=== PATIENT | male | born 1985 | race American Indian/Alaskan Native ===

== ENCOUNTER 2017-04-01 12:55 | Emergency (ER) | payer MEDICAID ==
[2017-04-01 13:07] VITALS: BMI 21.4
[2017-04-01 13:11] VITALS: RESP 18; O2SAT 98
[2017-04-01] MEDS ORDERED: Epinephrine /Lidocaine HCL 1:100,000/2% 30 ml INJ STA (14:13)
[2017-04-01] MEDS ORDERED: Lidocaine 2% w Epi 1:100,000 Inj IJ ONE (14:26)
--- NOTE | 2017-04-01 15:00 | CT ---
PROCEDURE: CT HEAD WITHOUT CONTRAST. HISTORY: syncope @ 0430, Lower lip lac COMPARISON: None available. TECHNIQUE: Axial computed tomography images were obtained through the head/brain without intravenous contrast. Radiation dose: Total exam DLP = 836.44 mGy-cm. This CT exam was performed using one or more of the following dose reduction techniques: Automated exposure control, adjustment of the mA and/or kV according to patient size, and/or use of iterative reconstruction technique. FINDINGS: HEMORRHAGE: No intracranial hemorrhage. BRAIN: No mass effect or edema. The hall-white matter differentiation appears intact. Please note that MRI with diffusion imaging is more sensitive in the detection of acute ischemic event. VENTRICLES: No hydrocephalus. CALVARIUM: Unremarkable. PARANASAL SINUSES: Mucosal thickening of the ethmoid air cells and bilateral sphenoid sinuses. MASTOID AIR CELLS: Unremarkable as visualized. No inflammatory changes. OTHER FINDINGS: None. IMPRESSION: No acute intracranial pathology identified.
--- NOTE | 2017-04-01 15:25 | C.PDOC ---
History Of Present Illness 31 y/o male presents to the ER for evaluation of a lip injury. Patient reports that he fell and hit his face on the floor. Patient reports that he cut his lips. Patient denies any substance abuse or ETOH abuse. Patient reports that he has no other medical complaints. Time Seen by Provider: 04/01/17 14:09 Chief Complaint (Nursing): Syncope History Per: Patient History/Exam Limitations: no limitations Onset/Duration Of Symptoms: Hrs Current Symptoms Are (Timing): Still Present Severity: Moderate Past Medical History Reviewed: Historical Data, Nursing Documentation, Vital Signs Vital Signs: Last Vital Signs Temp 98.0 F 04/01/17 15:50 Pulse 79 04/01/17 15:50 Resp 18 04/01/17 15:50 BP 124/74 04/01/17 15:50 Pulse Ox 98 04/02/17 00:49 - Medical History PMH: No Chronic Diseases Surgical History: No Surg Hx Family History: States: No Known Family Hx - Social History Hx Tobacco Use: Yes Hx Alcohol Use: Yes Hx Substance Use: Yes (past user) - Immunization History Hx Tetanus Toxoid Vaccination: No Hx Influenza Vaccination: No Hx Pneumococcal Vaccination: No Review Of Systems Except As Marked, All Systems Reviewed And Found Negative. Skin: Positive for: Other (cut on lip). Negative for: Bruising Neurological: Negative for: Confusion, Dizziness Physical Exam - Physical Exam Appears: Non-toxic, No Acute Distress, Other (thin black man) Skin: Normal Color, Warm Lips: Laceration (split lower lip - 2 cm) Neck: Supple Chest: Symmetrical Cardiovascular: Rhythm Regular Respiratory: Normal Breath Sounds, No Accessory Muscle Use Extremity: Normal ROM Neurological/Psych: Oriented x3, Normal Speech, Normal Cognition, Normal Motor, Normal Sensation ED Course And Treatment O2 Sat by Pulse Oximetry: 98 (RA) Pulse Ox Interpretation: Normal Laceration - Laceration Repair Inner Mid Lip Wound Length (In cm): 0.5 Description Of Wound: Linear Wound Cleansed With: Sterile Saline Anesthesia: Lidocaine 2%, With Epi Wound Examination: Irrigated With Saline, No FB With Wound Exploration Wound Closure: Suture (x1) Suture Technique And Material Used: Vicryl (3-0) Wound Complexity: Simple Outer Mid Lip Wound Length (In cm): 2 Description Of Wound: Linear Wound Cleansed With: Sterile Saline Anesthesia: Lidocaine 2%, With Epi Wound Examination: Irrigated With Saline, No FB With Wound Exploration Wound Closure: Suture (x6) Suture Technique And Material Used: Vicryl (3-0) Wound Complexity: Simple Medical Decision Making Medical Decision Making: accidental fall without intoxication with split lower lip now s/p suture repair w excellent effect head CT neg. ice pack, nsaids educated. Disposition Doctor Will See Patient In The: Office Counseled Patient/Family Regarding: Studies Performed, Diagnosis - Disposition Referrals: [facility] [Outside] [facility] [Outside] Disposition: HOME/ ROUTINE Disposition Time: 15:25 Condition: GOOD Additional Instructions: your lip laceration was repaired with 6 sutures on the outside and 1 on the inside soft diet. nothing hot/cold Motrin as needed ice packs to the lip as needed for swelling/pain your head CT is negative. Return in 2 days for wound check as needed the sutures are Vicryl and will dissolve/fall out in about 4-5 days and do NOT require medical removal. Return to ED for any significant changes/problems. Instructions: Care For Your Stitches (ED), Laceration (ED) Forms: [employer] (Pashto), Work Excuse - Clinical Impression Clinical Impression: Lip laceration - Scribe Statement The provider has reviewed the documentation as recorded by the Semajibjonas Walker Provider Attestation: All medical record entries made by the Scribe were at my direction and personally dictated by me. I have reviewed the chart and agree that the record accurately reflects my personal performance of the history, physical exam, medical decision making, and the department course for this patient. I have also personally directed, reviewed, and agree with the discharge instructions and disposition.
[2017-04-01 15:52] VITALS: BP 124/74; PULSE 79; TEMP 98
--- NOTE | 2017-04-03 13:21 | CARD ---
APPROVED REPORT EKG Measurement Heart [id number] <Conclusion> Normal sinus rhythm Normal ECG
== END 2017-04-01 15:55 | disposition home or self-care (01) ==
LOC: C.ER 12:55
DX: S01.511A Laceration without foreign body of lip, initial encounter (principal); W19.XXXA Unspecified fall, initial encounter; Z23 Encounter for immunization; Z87.891 Personal history of nicotine dependence

== ENCOUNTER 2017-04-03 14:53 | Emergency (ER) | payer MEDICAID ==
[2017-04-03 14:53] VITALS: BMI 21.4
[2017-04-03 15:18] VITALS: BP 130/72; PULSE 86; RESP 20; TEMP 97.7; O2SAT 100
--- NOTE | 2017-04-03 15:23 | C.PDOC ---
History Of Present Illness 31 yr old male presents to the ER for a wound check, s/p lower lip suture repair on 04/01. States swelling has decreased, reports of chapped skin. Patient denies fever, throat swelling, nausea or vomiting. Time Seen by Provider: 04/03/17 15:40 Chief Complaint (Nursing): Wound Check History Per: Patient History/Exam Limitations: no limitations Onset/Duration Of Symptoms: Days Ago Past Medical History Reviewed: Historical Data, Nursing Documentation, Vital Signs Vital Signs: Last Vital Signs Temp 97.7 F 04/03/17 15:15 Pulse 86 04/03/17 15:15 Resp 20 04/03/17 15:15 BP 130/72 04/03/17 15:15 Pulse Ox 100 04/03/17 15:15 Family History: States: No Known Family Hx - Social History Hx Tobacco Use: Yes Hx Alcohol Use: Yes Hx Substance Use: Yes (past user) - Immunization History Hx Tetanus Toxoid Vaccination: No Hx Influenza Vaccination: No Hx Pneumococcal Vaccination: No Review Of Systems Except As Marked, All Systems Reviewed And Found Negative. Constitutional: Negative for: Fever ENT: Negative for: Throat Swelling Gastrointestinal: Negative for: Nausea, Vomiting Physical Exam - Physical Exam Appears: Non-toxic, No Acute Distress Skin: Warm, Dry Head: Atraumatic, Normacephalic Oral Mucosa: Moist Lips: Other ((+) moderate lower lip swelling, no cellulitis, no infection, vicryl sutures in place, well approximated) Throat: Normal, No Erythema, No Exudate Neurological/Psych: Oriented x3, Normal Speech, Normal Motor Medical Decision Making Medical Decision Making: NOTE: * Advised patient of petroleum jelly use and Motrin for pain. Disposition Counseled Patient/Family Regarding: Diagnosis, Need For Followup - Disposition Referrals: [facility] [Outside] [facility] [Outside] Disposition: HOME/ ROUTINE Disposition Time: 15:17 Condition: GOOD Prescriptions: Ibuprofen [Motrin] 600 mg PO Q6 #30 tab Instructions: Care For Your Absorbable Stitches (ED) Forms: [employer] (Mauritanian), Work Excuse - Clinical Impression Clinical Impression: Visit for wound check - Scribe Statement The provider has reviewed the documentation as recorded by the Semajibe Cristina Degroot Provider Attestation: All medical record entries made by the Semajibjonas were at my direction and personally dictated by me. I have reviewed the chart and agree that the record accurately reflects my personal performance of the history, physical exam, medical decision making, and the department course for this patient. I have also personally directed, reviewed, and agree with the discharge instructions and disposition.
== END 2017-04-03 15:47 | disposition home or self-care (01) ==
LOC: C.ER 14:53
DX: Z51.89 Encounter for other specified aftercare (principal); Z87.891 Personal history of nicotine dependence